=== PATIENT | female | born 1985 ===

== ENCOUNTER 2019-10-25 09:23 | Inpatient (IN) | payer OTHER ==
[2019-10-25] VITALS (27 sets, daily range): BP systolic 98–1128; BP diastolic 53–73; PULSE 55–88; TEMP 97.3–98.2
[~2019-10-25] VITALS: Ht 172.7 cm; Wt 79.1 kg
[~2019-10-25 09:23] MED LIST: IBU800 M1 PO; PERCOCET 325 MG1 TA2 PO
[2019-10-25] MEDS ORDERED: PRENATAL TABLET PO (11:06)
[2019-10-25] MEDS ORDERED: SLOW FE142 MG PO (11:06)
[2019-10-25] MEDS ORDERED: FLINTSTONES COM1 CT1 PO (11:07)
[2019-10-25 11:13] LABS: BASO % 0.4 % (0.0-2.0); EOS % 0.3 % (0-4.0); GRAN # 5.8 (1.4-6.5); GRAN % 73.9 % (42.2-75.2); HEMATOCRIT 39.5 % (37.0-47.0); HEMOGLOBIN 13.4 g/dl (12.5-16.0); LYMPH # 1.5 (1.2-3.4); LYMPH % 18.6 % (20.0-51.0); MEAN CELL VOLUME 93 fl (80.0-100.0); MEAN CORPUSCULAR HEMOGLOBIN 32 pg (27.0-31.0); MEAN CORPUSCULAR HGB CONC 34 g/dl (33.0-37.0); MEAN PLATELET VOLUME 10.2 fl (7.4-10.4); MONO # 0.5 (0.1-0.6); MONO % 6.3 % (1.7-9.3); PLATELET COUNT 253 K/mm3 (130-400); RED BLOOD COUNT 4.24 M/mm3 (4.10-5.30); REDCELL DISTRIBUTION WIDTH-CV 14.8 % (11.5-14.5)
--- NOTE | 2019-10-25 11:37 | NUR ---
Pt and spouse arrive to unit at 1015 for induction of labor. Pt changed into gown, EFM explained and placed, vitals taken. Consents discussed and signed, assessment complete, labs drawn, questions invited and answered. Pt denies regular contractions, states she has felt some "cramping on and off", denies leaking of fluid or vaginal bleeding, reports good movement. 1054 - Pt off monitor to go to bathroom 1058 - Pt back on EFM. Pitocin started per orders at 2mu/ml/hr at 1100. SVE at this time 3/70/-2, cervix very posterior. 1116 - Pitocin increased to 4mu/ml/kg 1119 - FHT deceleration to 60, RN at bedside. Pt repositioned to LL at 1120, repositioned to RL at 1121 with FHT increase to 100 then decreasing again to 65. Pitocin stopped at this time. Pt repositioned to LL at 1122, FHT increased to 120s. Dr. Bonner notified, see physician notification. 1123 - FHT deceleration to 100 with recovery over 30 seconds into 120s-140s. Pt remains in LL position.
--- NOTE | 2019-10-25 12:19 | NUR ---
FHT WNL with good accelerations noted over last 40 mins. Pitocin restarted at this time at 2mu/ml/hr
--- NOTE | 2019-10-25 12:53 | NUR ---
Dr. Bonner to pt bedside. Per physician SVE /-2. AROM at this time, clear fluid noted. Plan of care discussed with pt, plan to continue with pitocin induction as tolerated.
--- NOTE | 2019-10-25 13:30 | NUR ---
1300 - Pt requesting epidural at this time. Chrissy Lawson CRNA notified. 1331 - Marina Kamara CRNA to pt bedside. Pt repositioned to sitting at side of bed. Test dose given at 1341, pt tolerated well and repositioned for comfort.
--- NOTE | 2019-10-25 14:12 | NUR ---
Pt reports feeling some pressure with contractions. FHT WNL with good accelerations. SVE 5/80/-2, pt comfortable with epidural.
--- NOTE | 2019-10-25 16:30 | NUR ---
1414 - Pt repositioned semi-fowlers following SVE, FHR deceleration to 115. Pt repositioned LL. Pt reports feeling light headed and dizzy, BP 79/50. Pt given 1 10mg dose ephedrine at 1417 and head of bed raised. 1418 - FHR deceleration into 80s, RN at bedside. Pt repositioned RL, FHR quickly increased into 120s. Late deceleration following next contraction to 100 with quick recovery to 120. Pt remains in RL position. 1450 - Alcantar catheter inserted, pt repositioned for comfort 1509 - Pt's to nurse desk to report pt feeling "leaking". RN to bedside. Pt reports feeling fluid coming out with contractions and now constant pressure in bottom. SVE 10/100/+1, Dr. Bonner notified, pitocin stopped. FHT difficut to trace at this time, RN remains at bedside, audible FHT between 70s and 150s. Ortiz Doty to bedside to assist, Bin Horne RN of nursery notified.
--- NOTE | 2019-10-25 16:43 | NUR ---
1528 - Dr. Bonner to pt bedside. Pt and room prepped for delivery. 1531 - Female delivered spontaneously by Dr. Bonner and placed on mother's abdomen. Care of infant transferred to Bin Meade RN of nursery. 1536 - Placenta spontaneously delivered by Dr. Bonner. Pitocin started per protocol. Cord blood collected. 2nd degree laceration repair performed by Dr. Bonner, see physician notes. 1545 - Pt repositioned for comfort. Ice pack placed on perineum, fundus firm and at umbilicus with small amount of bleeding noted.
--- NOTE | 2019-10-25 18:24 | NUR ---
Pt up to side of bed at 1745, epidural catheter removed. Pt ambulated under own power to bathroom. Pt voided 300ml, did own pericare, changed into own gown. Clean panties and pad provided. Pt then ambulated without difficulty to room. Pt oriented to room, call light within reach.
[2019-10-26 04:30] VITALS: BP 102/59; PULSE 69; TEMP 97.7
[2019-10-26] MEDS ORDERED: IBU800 M1 PO (08:17)
[2019-10-26 09:25] VITALS: BP 101/60; PULSE 78; TEMP 97.9
[2019-10-26 17:00] VITALS: BP 122/71; PULSE 62; TEMP 98.5
== END 2019-10-26 17:30 | disposition home or self-care (01) | DRG 807 ==
LOC: OB 09:23 → LDR 10:04 → OB 10:04
PROVIDERS: ADMIT Student in an Organized Health Care Education/Training Program
PROC: 10E0XZZ Delivery of Products of Conception, External Approach (ICD-10-PCS; principal; 2019-10-25)
PROC: 0KQM0ZZ Repair Perineum Muscle, Open Approach (ICD-10-PCS; 2019-10-25)
PROC: 10907ZC Drainage of Amniotic Fluid, Therapeutic from Products of Conception, Via Natural or Artificial Opening (ICD-10-PCS; 2019-10-25)
DX: O99.02 Anemia complicating childbirth (principal); Z37.0 Single live birth; O70.1 Second degree perineal laceration during delivery; Z3A.39 39 weeks gestation of pregnancy; D64.9 Anemia, unspecified
CPT/HCPCS: J2590; J2795; J7120